=== PATIENT | male | born 1975 | race Hispanic/Latino ===

== ENCOUNTER 2017-07-27 11:07 | Emergency (ER) | payer SELFPAY ==
[2017-07-27 12:02] LABS: BASOPHILS % (AUTO) 0.9 % (0.0-5.0); EOSINOPHILS % (AUTO) 5.1 % (0.0-8.0); HEMATOCRIT 42.1 % (42-54); LYMPHOCYTES % (AUTO) 27.1 % (21.0-51.0); MEAN CORPUSCULAR HEMOGLOBIN 29.7 pg (27.0-33.0); MEAN CORPUSCULAR HGB CONC 33.5 g/dL (32.0-36.0); MEAN CORPUSCULAR VOLUME 88.7 fL (79-99); MONOCYTES % (AUTO) 8.1 % (3.0-13.0); NEUTROPHILS % (AUTO) 58.8 % (40.0-77.0); PLATELET COUNT (AUTO) 239 K/uL (130-400); RED BLOOD CELL COUNT(AUTO) 4.75 MIL/uL (4.50-6.20); RED CELL DISTRIBUTION WIDTH 14.4 % (11.0-15.5); WHITE BLOOD COUNT (AUTO) 6.6 K/uL (4.8-10.8)
[2017-07-27] MEDS ORDERED: IPRATROPIUM/ALBUTEROL SULFATE 3 ML SOLUTION IH ONE (12:08)
[2017-07-27 12:09] LABS: CREATININE 0.7 mg/dL (0.5-1.5); POTASSIUM 3.6 mmol/L (3.5-5.1)
== END 2017-07-27 13:08 | disposition home or self-care (01) ==
LOC: EDH 11:07
DX: J10.00 Influenza due to other identified influenza virus with unspecified type of pneumonia (principal); Z72.0 Tobacco use
CPT/HCPCS: 36415; 71020; 80048; 85025; 87804; 94640

== ENCOUNTER 2017-11-14 09:01 | Emergency (ER) | payer SELFPAY ==
[2017-11-14] MEDS ORDERED: KETOROLAC TROMETHAMINE 60 MG/2 ML VIAL ONE (09:33)
[2017-11-14] MEDS ORDERED: ORPHENADRINE CITRATE 30 MG/ML ML ONE (09:33)
== END 2017-11-14 09:53 | disposition home or self-care (01) ==
LOC: EDH 09:01
DX: S16.1XXA Strain of muscle, fascia and tendon at neck level, initial encounter (principal); Z72.0 Tobacco use; Z98.890 Other specified postprocedural states; X58.XXXA Exposure to other specified factors, initial encounter; Y93.89 Activity, other specified; Y92.89 Other specified places as the place of occurrence of the external cause; Y99.8 Other external cause status
CPT/HCPCS: 72040; 96372 ×2; 99284; J1885; J2360

== ENCOUNTER 2017-12-26 16:38 | Emergency (ER) | payer SELFPAY ==
[2017-12-26] MEDS ORDERED: ORPHENADRINE CITRATE 30 MG/ML ML ONE (16:56)
[2017-12-26] MEDS ORDERED: KETOROLAC TROMETHAMINE 30MG/ML ONE (16:57)
== END 2017-12-26 17:24 | disposition home or self-care (01) ==
LOC: EDH 16:38
DX: S16.1XXA Strain of muscle, fascia and tendon at neck level, initial encounter (principal); Z72.0 Tobacco use; X58.XXXA Exposure to other specified factors, initial encounter; Y93.89 Activity, other specified; Y92.89 Other specified places as the place of occurrence of the external cause; Y99.8 Other external cause status
CPT/HCPCS: 96372 ×2; 99284; J1885; J2360

== ENCOUNTER 2018-01-12 20:56 | Emergency (ER) | payer OTHER ==
[2018-01-12] MEDS ORDERED: IBUPROFEN 800 MG TAB ONE (21:16)
== END 2018-01-12 21:54 | disposition home or self-care (01) ==
LOC: EDH 20:56
DX: S02.5XXA Fracture of tooth (traumatic), initial encounter for closed fracture (principal); K04.7 Periapical abscess without sinus; Z90.49 Acquired absence of other specified parts of digestive tract; X58.XXXA Exposure to other specified factors, initial encounter; Y93.89 Activity, other specified; Y92.89 Other specified places as the place of occurrence of the external cause; Y99.8 Other external cause status

== ENCOUNTER 2024-04-23 20:55 | Emergency (ER) | payer BC ==
[~2024-04-23] VITALS: Ht 157.5 cm; Wt 81.2 kg
[2024-04-23 21:03] VITALS: BP 132/88; PULSE 66; RESP 12; TEMP 98.6; O2SAT 100
[2024-04-23] MEDS: ketOROlac 30MG VIAL (30MG/ML) IM ONE (21:16)
[2024-04-23] MEDS ORDERED: KETO10TA2 PO (21:49)
== END 2024-04-23 22:51 | disposition home or self-care (01) ==
LOC: EDH 20:55
DX: S63.501A Unspecified sprain of right wrist, initial encounter (principal); I10 Essential (primary) hypertension; Z90.49 Acquired absence of other specified parts of digestive tract; Z98.890 Other specified postprocedural states; X50.0XXA Overexertion from strenuous movement or load, initial encounter; Y93.89 Activity, other specified; Y92.89 Other specified places as the place of occurrence of the external cause; Y99.8 Other external cause status
CPT/HCPCS: 99284; 73110; 96372; J1885

== ENCOUNTER 2024-07-10 18:57 | Emergency (ER) | payer BC ==
[~2024-07-10] VITALS: Ht 157.5 cm; Wt 80.7 kg
[~2024-07-10 18:57] MED LIST: KETO10TA2 PO
--- NOTE | 2024-07-10 19:11 | ERN ---
ED Note History of Present Illness Stated Complaint: RIGHT ARM PAIN SINCE YESTERDAY Chief Complaint: Upper Extremity Pain/Injury Time Seen by MD: 19:02 Dictation: PATIENT IS A 49-YEAR-OLD MALE STATES HE WORKS AT [employer] AND WAS UNLOADING A TRUCK YESTERDAY. HE STATES HE WAS GRABBI HE STATES HIS [id number] GAVE HIM SOME GOOD PILLS FOR PAIN. Allergies: Coded Allergies: No Known Allergies (Unverified Allergy, Unknown, 07/10/24) Home Meds Active Scripts Ibuprofen (Ibuprofen 800 mg Tab) 800 Mg Tab, 800 MG PO Q8H PRN for fever or pain, #30 TAB 0 Refills Prov:AYUSH HAJI MEDICAL LAB SCIENTIST 07/10/24 Ketorolac Tromethamine (Ketorolac Tromethamine) 10 Mg Tablet, 10 MG PO BID for 5 Days, #10 TAB Prov:CORINE CULVER PA 04/23/24 Past Medical History Past Medical History: Hypertension Surgical History: Appendectomy, Other Surgical History Other: HERNIA REPAIR RN Note Reviewed/Agreed w/PFSH: Yes Review of System Dictation CONSTITUTIONAL: NEGATIVE EXCEPT FOR HPI HEAD/FACE: NEGATIVE EXCEPT FOR HPI EENT: NEGATIVE EXCEPT FOR HPI RESPIRATORY: NEGATIVE EXCEPT FOR HPI GASTROINTESTINAL/ABDOMINAL: NEGATIVE EXCEPT FOR HPI GENITOURINARY: NEGATIVE EXCEPT FOR HPI MUSCULOSKELETAL: NEGATIVE EXCEPT FOR HPI RIGHT WRIST PAIN INTEGUMENTARY: NEGATIVE EXCEPT FOR HPI NEUROLOGICAL/PSYCH: NEGATIVE EXCEPT FOR HPI HEMATOLOGIC/LYMPHATIC: NEGATIVE EXCEPT FOR HPI ALL SYSTEMS NEGATIVE, EXCEPT NOTED ABOVE. 13 POINT REVIEW OF SYSTEMS ASSESSED AND ALL NEGATIVE EXCEPT FOR ABOVE. Initial Vital Sign VS Vital Signs Date Time Temp Pulse Resp B/P (MAP) Pulse Ox O2 Delivery O2 Flow Rate FiO2 07/10/24 19:23 97.9 60 16 122/70 100 Room Air Physical Exam Dictation VITAL SIGNS REVIEWED GENERAL APPEARANCE: ALERT, ORIENTED X 3, MILD ACUTE DISTRESS, WELL DEVELOPED, NOURISHED. HEAD AND FACE: NON-TRAUMATIC. EYES: PERRL, PINK CONJUNCTIVAS, EYELID NO TRAUMA, ANTERIOR CHAMBER WITH ARCUS SENILIS. EARS: PINNAS INTACT AND NO SIGNS OF TRAUMA OR ERYTHEMA EAR CANALS CLEAR AND NO DISCHARGE TM NO ERYTHEMA NOSE: NO DISCHARGE, NO BLEEDING. OROPHARYNX: MOUTH NORMAL, TONGUE PINK, PHARYNX CLEAR,NO ERYTHEMA, TONSILS NO EXUDATES, NO ABSCESSES NOTED, MUCOUS MEMBRANE MOIST NECK: SUPPLE, NON-TENDER, NO THYROMEGALY, NO MASSES, NO JVD, NO BRUITS BREAST:DEFERRED CHEST:NO TENDERNESS, NO CREPITUS, NO PARADOXICAL MOVEMENT, NO RETRACTIONS LUNGS:CLEAR, WELL-VENTILATED, SYMMETRIC, NO RALES, NO WHEEZING, NO RHONCHI, NO STRIDOR, GOOD BREATH SOUNDS BILATERALLY HEART: REGULAR RATE, REGULAR RHYTHM, NO MURMUR, NO GALLOPS VASCULAR: NO PERIPHERAL EDEMA, ABDOMEN: SOFT, POSITIVE BOWEL SOUNDS, NONDISTENDED, NO GUARDING, NONTENDER, NO REBOUND, NO MASSES NO HEPATOMEGALY, NO SPLENOMEGALY, NO RUTLEDGE'S SIGN, NO HERNIAS. RECTAL: DEFERRED GENITAL: DEFERRED NEUROLOGICAL: NORMAL SPEECH, MOTOR FUNCTION INTACT, SENSORY FUNCTION INTACT MUSCULOSKELETAL: NECK NONTENDER, FULL RANGE OF MOTION, BACK NONTENDER, FULL RANGE OF MOTION, EXTREMITIES: DIFFUSE RIGHT WRIST TENDERNESS WITHOUT SWELLING OR INFLAMMATION. FULL RANGE OF MOTION NOTED. SKIN: COLOR PINK, DRY, NO TURGOR, NO RASH, NO LACERATIONS, NO ABRASIONS, NO CONTUSIONS. LYMPHATIC: DEFERRED Results (Laboratory/Radiology) Laboratory/Radiology 2002 RIGHT WRIST X-RAY NEGATIVE Labs Reviewed?: Yes ED Course ED Course Orders Procedure Category Date Status Time Wrist Comp 3+Vws Rt RAD 07/10/24 Resulted 19:07 Ibuprofen 800 Mg Tab PHA 07/10/24 Complete (Motrin) 19:30 Current Medications Medications (Trade) Dose Ordered Sig/Escobar Route PRN Reason Start Time Stop Time Status Last Admin Dose Admin Ibuprofen (moTRIN) 800 mg ONCE ONCE PO 07/10/24 19:30 07/10/24 19:31 DC 07/10/24 20:25 Vital Signs Date Time Temp Pulse Resp B/P (MAP) Pulse Ox O2 Delivery O2 Flow Rate FiO2 07/10/24 19:23 97.9 60 16 122/70 100 Room Air PAIN DECREASED AFTER TREATMENT. WE WILL PLACE SPLINT AND NO WEIGHT-BEARING UNTIL CLEARED BY ORTHOPEDICS. Medical Decision Making MDM MEDICAL DISCHARGE MAKING BASED ON X-RAY OF RIGHT WRIST, SPLINT PLACEMENT AND REFERRAL TO ORTHOPEDICS. NEUROVASCULAR CMS INTACT AFTER PLACEMENT OF SPLINT DISCHARGED HOME TO FOLLOW UP WITH DR. 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 FINDINGS: There is no evidence of fracture or dislocation. There is no joint effusion. The soft tissues appear unremarkable. There is no evidence of a radiopaque foreign body. IMPRESSION: No acute findings. DX & DISP Disposition: Discharge Departure Impression: Primary Impression: Right wrist sprain Condition: Stable Scripts Ibuprofen (Ibuprofen 800 mg Tab) 800 Mg Tab 800 MG PO Q8H PRN for fever or pain, #30 TAB 0 Refills Prov: AYUSH HAJI NP 07/10/24 Additional Instructions: FOLLOW-UP WITH PRIMARY CARE PROVIDER IN 1 TO 2 DAYS. TAKE MEDICATIONS DIRE CTED HERE IN THE EMERGENCY ROOM. OKAY TO CONTINUE HOME MEDICATIONS UNLESS OTHERWISE DISCUSSED DURING YOUR VISIT IN THE EMERGENCY ROOM TODAY. RETURN TO YOUR NEAREST EMERGENCY ROOM IF SYMPTOMS WORSEN OR IF THERE IS NO IMPROVEMENT. CALL 911 IF YOU NEED IMMEDIATE ASSISTANCE. TAKE TYLENOL OR MOTRIN [id number] NEEDED AND IF NO CONTRAINDICATIONS ARE PRESENT. INCREASE ORAL HYDRATION. A WOUND CULTURE OR URINE CULTURE WAS ORDERED HERE IN THE EMERGENCY ROOM DEPARTMENT PLEASE FOLLOW-UP WITH PRIMARY CARE PROVIDER AND ADVISE THEM TO GET REPEAT PORTS FROM OUR FACILITY. IF YOU HAD ANY DAVINA WRAP/SPLINTS THAT WERE APPLIED HERE, PLEASE DO NOT REMOVE THEM UNTIL YOU SEE YOUR PRIMARY CARE OR SPECIALTY. SPLINT/NO WEIGHT-BEARING RIGHT WRIST UNTIL CLEARED BY ORTHOPEDIC SURGEON, CALL FOR AN APPOINTMENT ON SATURDAY. COOL COMPRESSES TO PAIN THREE TO 4 TIMES A DAY. Referrals: JONAS MORENO (PCP) ML MORRIS DO Time of Disposition: 20:06 I have reviewed the case, and I agree with, Diagnosis and Plan AYUSH HAJI NP Jul 10, 2024 19:11 RAFAEL RAYMOND DO Jul 11, 2024 08:18
[2024-07-10 19:23] VITALS: BP 122/70; PULSE 60; RESP 16; TEMP 97.8
--- NOTE | 2024-07-10 20:03 | HMCIMG ---
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 FINDINGS: There is no evidence of fracture or dislocation. There is no joint effusion. The soft tissues appear unremarkable. There is no evidence of a radiopaque foreign body. IMPRESSION: No acute findings.
[2024-07-10] MEDS ORDERED: IBUP-2077 PO (20:07)
[2024-07-10] MEDS: ibuPROFEN 800 MG TAB PO ONE (20:25)
== END 2024-07-10 20:30 | disposition home or self-care (01) ==
LOC: EDH 18:57
DX: S63.591A Other specified sprain of right wrist, initial encounter (principal); I10 Essential (primary) hypertension; Z90.49 Acquired absence of other specified parts of digestive tract; Z98.890 Other specified postprocedural states; Z79.899 Other long term (current) drug therapy; X58.XXXA Exposure to other specified factors, initial encounter; Y93.89 Activity, other specified; Y92.89 Other specified places as the place of occurrence of the external cause; Y99.8 Other external cause status
CPT/HCPCS: 29125; 73110; 99283

== ENCOUNTER 2025-05-31 10:45 | Emergency (ER) | payer BC ==
[~2025-05-31] VITALS: Ht 157.5 cm; Wt 86.2 kg
[~2025-05-31 10:45] MED LIST changes: +IBUP-2077 PO
--- NOTE | 2025-05-31 10:52 | ERN ---
ED Note History of Present Illness Stated Complaint: LOW BACK PAIN Chief Complaint: Back Pain-No Injury Time Seen by MD: 10:49 Dictation: PATIENT IS A 50-YEAR-OLD MALE COMING IN TODAY WITH COMPLAINTS OF DIFFUSE LUMBAR PAIN WITHOUT RADICULOPATHY OR SCIATICA TWO DAYS PRIOR TO ARRIVAL. 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 HE HAS NOT TAKEN ANYTHING PRIOR TO ARRIVAL FOR PAIN SINCE THE ONSET. THERE WAS NO RADICULOPATHY NO SCIATICA HE HAS NO CHANGES IN BOWEL OR BLADDER FUNCTION AND NO PRIMARY CARE DOCTOR. NO HISTORY OF PRIOR SURGERIES OR INJURIES Allergies: Coded Allergies: No Known Allergies (Unverified Allergy, Unknown, 07/10/24) Home Meds Active Scripts Ibuprofen (Ibuprofen 800 mg Tab) 800 Mg Tab, 800 MG PO Q8H PRN for fever or pain, #30 TAB 0 Refills Prov:AYUSH HAJI WEATHERIZATION TECHNICIAN 07/10/24 Ketorolac Tromethamine (Ketorolac Tromethamine) 10 Mg Tablet, 10 MG PO BID for 5 Days, #10 TAB Prov:CORINE CULVER PAC 04/23/24 Past Medical History Past Medical History: Hypertension Surgical History: Appendectomy, Other Surgical History Other: HERNIA REPAIR, JAW RN Note Reviewed/Agreed w/PFSH: Yes Review of System Dictation CONSTITUTIONAL: NEGATIVE EXCEPT FOR HPI HEAD/FACE: NEGATIVE EXCEPT FOR HPI EENT: NEGATIVE EXCEPT FOR HPI RESPIRATORY: NEGATIVE EXCEPT FOR HPI GASTROINTESTINAL/ABDOMINAL: NEGATIVE EXCEPT FOR HPI GENITOURINARY: NEGATIVE EXCEPT FOR HPI MUSCULOSKELETAL: NEGATIVE EXCEPT FOR HPI DIFFUSE LUMBOSACRAL PAIN INTEGUMENTARY: NEGATIVE EXCEPT FOR HPI NEUROLOGICAL/PSYCH: NEGATIVE EXCEPT FOR HPI HEMATOLOGIC/LYMPHATIC: NEGATIVE EXCEPT FOR HPI ALL SYSTEMS NEGATIVE, EXCEPT NOTED ABOVE. 13 POINT REVIEW OF SYSTEMS ASSESSED AND ALL NEGATIVE EXCEPT FOR ABOVE. Initial Vital Sign VS Vital Signs Date Time Temp Pulse Resp B/P (MAP) Pulse Ox O2 Delivery O2 Flow Rate FiO2 05/31/25 10:47 98.1 62 16 126/77 98 Room Air 0 Physical Exam Dictation VITAL SIGNS REVIEWED GENERAL APPEARANCE: ALERT, ORIENTED X 3, MODERATE ACUTE DISTRESS, WELL DEVELOPED, NOURISHED. HEAD AND FACE: NON-TRAUMATIC. EYES: PERRL, PINK CONJUNCTIVAS, EYELID NO TRAUMA, ANTERIOR CHAMBER WITH ARCUS SENILIS. EARS: PINNAS INTACT AND NO SIGNS OF TRAUMA OR ERYTHEMA EAR CANALS CLEAR AND NO DISCHARGE TM NO ERYTHEMA NOSE: NO DISCHARGE, NO BLEEDING. OROPHARYNX: MOUTH NORMAL, TONGUE PINK, PHARYNX CLEAR,NO ERYTHEMA, TONSILS NO EXUDATES, NO ABSCESSES NOTED, MUCOUS MEMBRANE MOIST NECK: SUPPLE, NON-TENDER, NO THYROMEGALY, NO MASSES, NO JVD, NO BRUITS BREAST:DEFERRED CHEST:NO TENDERNESS, NO CREPITUS, NO PARADOXICAL MOVEMENT, NO RETRACTIONS LUNGS:CLEAR, WELL-VENTILATED, SYMMETRIC, NO RALES, NO WHEEZING, NO RHONCHI, NO STRIDOR, GOOD BREATH SOUNDS BILATERALLY HEART: REGULAR RATE, REGULAR RHYTHM, NO MURMUR, NO GALLOPS VASCULAR: NO PERIPHERAL EDEMA, ABDOMEN: SOFT, POSITIVE BOWEL SOUNDS, NONDISTENDED, NO GUARDING, NONTENDER, NO REBOUND, NO MASSES NO HEPATOMEGALY, NO SPLENOMEGALY, NO RUTLEDGE'S SIGN, NO HERNIAS. RECTAL: DEFERRED GENITAL: DEFERRED NEUROLOGICAL: NORMAL SPEECH, MOTOR FUNCTION INTACT, SENSORY FUNCTION INTACT MUSCULOSKELETAL: NECK NONTENDER, FULL RANGE OF MOTION, DIFFUSE LUMBOSACRAL TENDERNESS. NO STEP-OFFS OR MIDLINE SPINE PAIN. NEGATIVE STRAIGHT LEG RAISE BILATERALLY 10 EXTREMITIES: NONTENDER, FULL RANGE OF MOTION SKIN: COLOR PINK, DRY, NO TURGOR, NO RASH, NO LACERATIONS, NO ABRASIONS, NO CONTUSIONS. LYMPHATIC: DEFERRED Results (Laboratory/Radiology) Laboratory/Radiology 1150/LUMBAR X-RAY DEMONSTRATES DEGENERATIVE CHANGES ONLY Labs Reviewed?: Yes ED Course ED Course Orders Procedure Category Date Status Time Lumbar Spine 2-3vws RAD 05/31/25 Taken 10:49 Cyclobenzaprine Hcl PHA 05/31/25 Complete (Cyclobenzaprine Hcl 11:00 Ibuprofen 800 Mg Tab PHA 05/31/25 Complete (Motrin) 11:00 Current Medications Medications (Trade) Dose Ordered Sig/Escobar Route PRN Reason Start Time Stop Time Status Last Admin Dose Admin Cyclobenzaprine HCl (Cyclobenzaprine HCl) 10 mg ONCE ONCE PO 05/31/25 11:00 05/31/25 11:01 DC Ibuprofen (moTRIN) 800 mg ONCE ONCE PO 05/31/25 11:00 05/31/25 11:01 DC Vital Signs Date Time Temp Pulse Resp B/P (MAP) Pulse Ox O2 Delivery O2 Flow Rate FiO2 05/31/25 10:47 98.1 62 16 126/77 98 Room Air 0 Medical Decision Making [facility] 1150/MEDICAL DISCHARGE MAKING BASED ON EMPIRIC TREATMENT FOR ACUTE LUMBAR PAIN PATIENT WAS DISCHARGED FROM WAITING ROOM AND WAS MEDICATED THE TIME OF DISCHARGE. LUMBAR X-RAY DEMONSTRATES DEGENERATIVE CHANGES ONLY NO FRACTURES PATIENT PLACED ON FLEXERIL/IBUPROFEN HE WAS TAKEN OFF WORK AND NO LIFTING GREATER THAN 10 LB UNTIL CLEARED BY PRIMARY CARE DOCTOR. GIVEN A LIST OF DOCTORS ON STAFF TO FOLLOW UP OUTPATIENT DX & DISP Disposition: Discharge Departure Impression: Primary Impression: Acute myofascial strain of lumbosacral region Condition: Stable Scripts Cyclobenzaprine HCl (Cyclobenzaprine HCl) 10 Mg Tablet 1 TAB PO TID for muscle spasms for 10 Days, #30 TAB 0 Refills Prov: AYUSH HAJI 05/31/25 Ibuprofen (Ibuprofen 800 mg Tab) 800 Mg Tab 800 MG PO Q8H PRN for fever or pain, #30 TAB 0 Refills Prov: AYUSH HAJI 05/31/25 Additional Instructions: FOLLOW-UP WITH PRIMARY CARE PROVIDER IN 1 TO 2 DAYS. TAKE MEDICATIONS DIRECTED HERE IN THE EMERGENCY ROOM. OKAY TO CONTINUE HOME MEDICATIONS UNLESS OTHERWISE DISCUSSED DURING YOUR VISIT IN THE EMERGENCY ROOM TODAY. RETURN TO YOUR NEAREST EMERGENCY ROOM IF SYMPTOMS WORSEN OR IF THERE IS NO IMPROVEMENT. CALL 911 IF YOU NEED IMMEDIATE ASSISTANCE. TAKE TYLENOL OR MOTRIN [id number] NEEDED AND IF NO CONTRAINDICATIONS ARE PRESENT. INCREASE ORAL HYDRATION. A WOUND CULTURE OR URINE CULTURE WAS ORDERED HERE IN THE EMERGENCY ROOM DEPARTMENT PLEASE FOLLOW-UP WITH PRIMARY CARE PROVIDER AND ADVISE THEM TO GET REPEAT PORTS FROM OUR FACILITY. IF YOU HAD ANY DAVINA WRAP/SPLINTS THAT WERE APPLIED HERE, PLEASE DO NOT REMOVE THEM UNTIL YOU SEE YOUR PRIMARY CARE OR SPECIALTY. TAKE IBUPROFEN AND FLEXERIL EVERY 8 HOURS WITH FOOD FOR THE NEXT TWO DAYS. WARM COMPRESSES TO BACK PAIN THREE TO 4 TIMES A DAY. NO WORK UNTIL CLEARED BY YOUR PRIMARY CARE DOCTOR IN THE NEXT 1-2 DAYS. Referrals: SELF,REFERRAL (PCP) Time of Disposition: 11:49 I have reviewed the case, and I agree with, Diagnosis and Plan AYUSH HAJI May 31, 2025 10:52
[2025-05-31] MEDS: CYCLOBENZAPRINE HCL 10 MG TABLET PO ONE (11:00)
[2025-05-31] MEDS ORDERED: CYCL-309 PO (11:50)
--- NOTE | 2025-05-31 12:32 | HMCIMG ---
EXAM: CR Lumbar Spine, 3 View. CLINICAL HISTORY: DIFFUSE LUMBOSACRAL PAIN THREE DAYS NON TRAUMA COMPARISON: None provided. FINDINGS: Dextrocurvature and straightening of the lumbar spine that may reflect paraspinal muscle spasm. Spondylosis evident by anterior osteophytes and syndesmophytes at multiple levels. Multilevel degenerative disc disease, most pronounced at L4-L5 and L5-S1. Vertebral body heights are maintained without displaced fracture. No listhesis. IMPRESSION: 1. No acute findings. 2. Multilevel degenerative changes including spondylosis and disc disease, most pronounced at L4-L5 and L5-S1. /[place]
[2025-05-31 13:57] VITALS: BP 143/69; PULSE 76; RESP 20; TEMP 98.3; O2SAT 99
== END 2025-05-31 14:12 | disposition home or self-care (01) ==
LOC: EDH 10:45
DX: S39.012A Strain of muscle, fascia and tendon of lower back, initial encounter (principal); I10 Essential (primary) hypertension; Z90.49 Acquired absence of other specified parts of digestive tract; Z98.890 Other specified postprocedural states; X50.0XXA Overexertion from strenuous movement or load, initial encounter; Y93.89 Activity, other specified; Y92.89 Other specified places as the place of occurrence of the external cause; Y99.0 Civilian activity done for income or pay
CPT/HCPCS: 72100; 99283